=== PATIENT | male | born 1965 | race Caucasian/White ===

== ENCOUNTER → 2017-01-17 | Outpatient (CLI) | payer BC ==
[2017-01-17 10:21] LABS: Cholesterol 196 mg/dL (<200); HDL Cholesterol 54 mg/dL (40-60); Triglycerides 108 mg/dL (<150)
== END | disposition home or self-care (01) ==
LOC: LABWHC1 09:26
PROVIDERS: ATTEND Internal Medicine Endocrinology, Diabetes & Metabolism
DX: E10.65 Type 1 diabetes mellitus with hyperglycemia (principal)
CPT/HCPCS: 36415; 80061

== ENCOUNTER → 2017-04-24 | Outpatient (CLI) | payer BC ==
[2017-04-24 09:20] LABS: ALT 32 U/L (21-72); AST 24 U/L (17-59); Alkaline Phosphatase 81 U/L (38-126); Anion Gap 8 mmol/L; Blood Urea Nitrogen 20 mg/dL (9-20); Calcium 9.5 mg/dL (8.4-10.2); Carbon Dioxide 28 mmol/L (22-30); Chloride 106 mmol/L (98-107); Cholesterol 189 mg/dL (<200); Glucose 154 mg/dL (74-99); HDL Cholesterol 48 mg/dL (40-60); Non-African American GFR(MDRD) >60 (>60 ml/min/1.73 sqM); Potassium 4.9 mmol/L (3.5-5.1); Sodium 142 mmol/L (137-145); Total Bilirubin 0.9 mg/dL (0.2-1.3); Total Protein 7.4 g/dL (6.3-8.2); Triglycerides 124 mg/dL (<150)
== END | disposition home or self-care (01) ==
LOC: LABWHC1 08:24
PROVIDERS: ATTEND Internal Medicine Endocrinology, Diabetes & Metabolism
DX: E10.65 Type 1 diabetes mellitus with hyperglycemia (principal)
CPT/HCPCS: 36415; 80053; 80061; 82043

== ENCOUNTER → 2017-05-01 | Outpatient (CLI) | payer BC | END | disposition home or self-care (01) | LOC: LABWHC1 08:01 | PROVIDERS: ATTEND Internal Medicine Endocrinology, Diabetes & Metabolism | DX: E10.65 Type 1 diabetes mellitus with hyperglycemia (principal) | CPT/HCPCS: 36415; 82533; 84439; 84443 ==

== ENCOUNTER → 2017-08-02 | Outpatient (CLI) | payer BC | END | disposition home or self-care (01) | LOC: LABWHC1 08:54 | PROVIDERS: ATTEND Internal Medicine Endocrinology, Diabetes & Metabolism | DX: E10.65 Type 1 diabetes mellitus with hyperglycemia (principal) | CPT/HCPCS: 36415; 82533; 84439; 84443 ==

== ENCOUNTER 2017-10-13 10:37 | Observation (INO) | payer BC ==
--- NOTE | 2017-10-13 11:39 | ED ---
General Adult HPI - General Chief complaint: Arrhythmia/Palpitations Stated complaint: chest pain; palpitations; weakness Time Seen by Provider: 10/13/17 11:01 Source: patient, RN notes reviewed Mode of arrival: wheelchair Limitations: no limitations - History of Present Illness Initial comments: 52-year-old male with type 1 diabetes presents for evaluation of chest pain and epigastric pain. Patient also complains of palpitations, these are worse while leaning forward. Pain is described as dull in nature. Nonradiating. Patient is pain-free at the time of my evaluation. Patient has no known history of coronary artery disease. Patient's diagnosis of diabetes was made approximately one year ago. He does have a remote history of tobacco use, quit approximately 10 years ago. Patient denies cough. Denies fever. Chest pain and palpitations have been present for weeks to months. Patient states that these have worsened over the past 2 days. He does report some mild shortness of breath with pain. No nausea or vomiting or diaphoresis. - Related Data Home Medications Medication Instructions Recorded Confirmed Insulin Glargine,Hum.rec.anlog 5 units SQ DAILY@1200 10/13/17 10/13/17 [Toujeo Solostar] Insulin Lispro [humaLOG Kwikpen] 2 - 4 unit SQ ACHS 10/13/17 10/13/17 Latanoprost [Xalatan 0.005%] 1 drop RIGHT EYE HS 10/13/17 10/13/17 Timolol [Betimol 0.5% Ophth Soln] 1 drop BOTH EYES BID 10/13/17 10/13/17 Allergies Allergy/AdvReac Type Severity Reaction Status Date / Time No Known Allergies Allergy Verified 10/13/17 11:22 Review of Systems ROS Statement: Those systems with pertinent positive or pertinent negative responses have been documented in the HPI. ROS Other: All systems not noted in ROS Statement are negative. Past Medical History Past Medical History: Diabetes Mellitus, Hyperlipidemia History of Any Multi-Drug Resistant Organisms: None Reported Past Surgical History: Appendectomy Past Psychological History: No Psychological Hx Reported Smoking Status: Former smoker Past Alcohol Use History: Daily Past Drug Use History: Marijuana General Exam Limitations: no limitations General appearance: alert, in no apparent distress Head exam: Present: atraumatic, normocephalic Eye exam: Present: normal appearance, PERRL ENT exam: Present: normal exam Neck exam: Present: normal inspection. Absent: tenderness, meningismus Respiratory exam: Present: normal lung sounds bilaterally. Absent: respiratory distress Cardiovascular Exam: Present: regular rate, normal rhythm GI/Abdominal exam: Present: soft, tenderness (Mild epigastric tenderness). Absent: distended Extremities exam: Present: normal inspection, full ROM Neurological exam: Present: alert, oriented X3, CN II-XII intact. Absent: motor sensory deficit Psychiatric exam: Present: normal affect, normal mood Skin exam: Present: warm, dry, intact. Absent: cyanosis, diaphoretic Course Vital Signs 10/13/17 10/13/17 10/13/17 10:41 11:57 12:56 Temperature 97.4 F L Pulse Rate 72 69 68 Respiratory 18 18 16 Rate Blood Pressure 146/93 143/78 114/82 O2 Sat by Pulse 100 100 100 Oximetry - Reevaluation(s) Reevaluation #1: 10/13/17 13:21 Patient remains asymptomatic on emergency department. EKG Findings - EKG Comments: EKG Findings:: EKG obtained at 1057 shows sinus bradycardia with a rate of 58, LVH, early repolarization in the precordium, no ST segment elevation, no T-wave abnormality, SD interval 138, QRS duration 84, QTC 378. Medical Decision Making - Medical Decision Making 52-year-old male presenting with chest pain. Given the patient's risk factors, there is concern for coronary artery disease. EKG shows no signs of acute ischemia, EKG was repeated 30 minutes after initial EKG, this shows sinus bradycardia, LVH, ventricular rate 54, SD interval 140, QRS duration 84, QTC 378 , unchanged from previous EKG. Patient remains chest pain-free while the emergency department. He is given aspirin. He will be placed in observation for serial cardiac enzymes and cardiology evaluation. - Lab Data Result diagrams: 10/13/17 11:10/13/17 11:34 Lab Results 10/13/17 10/13/17 10/13/17 Range/Units 11:05 11:05 11:34 WBC 6.0 (3.8-10.6) k/uL RBC 5.33 (4.30-5.90) m/uL Hgb 17.3 (13.0-17.5) gm/dL Hct 49.5 (39.0-53.0) % MCV 92.8 (80.0-100.0) fL MCH 32.5 (25.0-35.0) pg MCHC 35.1 (31.0-37.0) g/dL RDW 13.3 (11.5-15.5) % Plt Count 165 (150-450) k/uL Neutrophils % 65 % Lymphocytes % 23 % Monocytes % 7 % Eosinophils % 2 % Basophils % 0 % Neutrophils # 3.9 (1.3-7.7) k/uL Lymphocytes # 1.4 (1.0-4.8) k/uL Monocytes # 0.4 (0-1.0) k/uL Eosinophils # 0.1 (0-0.7) k/uL Basophils # 0.0 (0-0.2) k/uL PT 11.1 (9.0-12.0) sec INR 1.1 (<1.2) APTT 23.6 (22.0-30.0) sec Sodium (137-145) mmol/L Potassium (3.5-5.1) mmol/L Chloride (98-107) mmol/L Carbon Dioxide (22-30) mmol/L Anion Gap mmol/L BUN (9-20) mg/dL Creatinine (0.66-1.25) mg/dL Est GFR (MDRD) Af Amer (>60 ml/min/1.73 sqM) Est GFR (MDRD) Non-Af (>60 ml/min/1.73 sqM) Glucose (74-99) mg/dL Calcium (8.4-10.2) mg/dL Magnesium (1.6-2.3) mg/dL Total Bilirubin (0.2-1.3) mg/dL AST (17-59) U/L ALT (21-72) U/L Alkaline Phosphatase (38-126) U/L Total Creatine Kinase 126 (55-170) U/L CK-MB (CK-2) 0.8 (0.0-2.4) ng/mL CK-MB (CK-2) Rel Index 0.6 Troponin I <0.012 (0.000-0.034) ng/mL NT-Pro-B Natriuret Pep pg/mL Total Protein (6.3-8.2) g/dL Albumin (3.5-5.0) g/dL 11/19/17 11/19/17 Range/Units 11:34 11:34 WBC (3.8-10.6) k/uL RBC (4.30-5.90) m/uL Hgb (13.0-17.5) gm/dL Hct (39.0-53.0) % MCV (80.0-100.0) fL MCH (25.0-35.0) pg MCHC (31.0-37.0) g/dL RDW (11.5-15.5) % Plt Count (150-450) k/uL Neutrophils % % Lymphocytes % % Monocytes % % Eosinophils % % Basophils % % Neutrophils # (1.3-7.7) k/uL Lymphocytes # (1.0-4.8) k/uL Monocytes # (0-1.0) k/uL Eosinophils # (0-0.7) k/uL Basophils # (0-0.2) k/uL PT (9.0-12.0) sec INR (<1.2) APTT (22.0-30.0) sec Sodium 138 (137-145) mmol/L Potassium 4.6 (3.5-5.1) mmol/L Chloride 105 (98-107) mmol/L Carbon Dioxide 22 (22-30) mmol/L Anion Gap 11 mmol/L BUN 14 (9-20) mg/dL Creatinine 0.75 (0.66-1.25) mg/dL Est GFR (MDRD) Af Amer >60 (>60 ml/min/1.73 sqM) Est GFR (MDRD) Non-Af >60 (>60 ml/min/1.73 sqM) Glucose 143 H (74-99) mg/dL Calcium 10.0 (8.4-10.2) mg/dL Magnesium 2.0 (1.6-2.3) mg/dL Total Bilirubin 1.2 (0.2-1.3) mg/dL AST 24 (17-59) U/L ALT 37 (21-72) U/L Alkaline Phosphatase 89 (38-126) U/L Total Creatine Kinase (55-170) U/L CK-MB (CK-2) (0.0-2.4) ng/mL CK-MB (CK-2) Rel Index Troponin I (0.000-0.034) ng/mL NT-Pro-B Natriuret Pep 33 pg/mL Total Protein 7.6 (6.3-8.2) g/dL Albumin 4.5 (3.5-5.0) g/dL Disposition Clinical Impression: Chest pain Disposition: ADMITTED IP TO THIS [facility] Condition: Stable Referrals: Deyanira Montaño DO [Primary Care Provider] - 1-2 days Decision to Admit Reason: Admit from EC Decision Date: 10/13/17 Decision Time: 13:24
[2017-10-13 11:42] LABS: Basophils % (A) 0 %; CH 33.5; CHCM 36.2; Eosinophils # (A) 0.1 k/uL (0-0.7); Eosinophils % (A) 2 %; HCT 49.5 % (39.0-53.0); HDW 2.69; HGB 17.3 gm/dL (13.0-17.5); Large Platelets Flag Slight; Luc # (Auto) 0.22; Luc % (Auto) 4; Lymphocytes # (A) 1.4 k/uL (1.0-4.8); Lymphocytes % (A) 23 %; MCH 32.5 pg (25.0-35.0); MCHC 35.1 g/dL (31.0-37.0); MCV 92.8 fL (80.0-100.0); Mean Platelet Volume 10.4; Monocytes # (A) 0.4 k/uL (0-1.0); Monocytes % (A) 7 %; Neutrophils # (A) 3.9 k/uL (1.3-7.7); Neutrophils % (A) 65 %; RBC 5.33 m/uL (4.30-5.90); RDW 13.3 % (11.5-15.5); WBC (Perox) 5.87
[2017-10-13 11:50] LABS: ALT 37 U/L (21-72); AST 24 U/L (17-59); Alkaline Phosphatase 89 U/L (38-126); Anion Gap 11 mmol/L; Blood Urea Nitrogen 14 mg/dL (9-20); Carbon Dioxide 22 mmol/L (22-30); Chloride 105 mmol/L (98-107); Glucose 143 mg/dL (74-99); Non-African American GFR(MDRD) >60 (>60 ml/min/1.73 sqM); Potassium 4.6 mmol/L (3.5-5.1); Sodium 138 mmol/L (137-145); Total Bilirubin 1.2 mg/dL (0.2-1.3); Total Protein 7.6 g/dL (6.3-8.2)
--- NOTE | 2017-10-13 11:51 | XR ---
EXAMINATION TYPE: XR chest 2V DATE OF EXAM: 10/13/2017 HISTORY: Chest Pain. REFERENCE: NONE. FINDINGS: The lungs are overinflated. The lungs are clear. Pleural space are clear. The heart is not enlarged. IMPRESSION: COPD.
[2017-10-13 12:02] LABS: Creatine Kinase 126 U/L (55-170)
[2017-10-13 12:06] LABS: INR 1.1 (<1.2); Partial Thromboplastin Time 23.6 sec (22.0-30.0); Prothrombin Time 11.1 sec (9.0-12.0)
[2017-10-13 12:15] LABS: Creatine Kinase MB 0.8 ng/mL (0.0-2.4); Troponin I <0.012 ng/mL (0.000-0.034)
[2017-10-13] MEDS ORDERED: ASPIRIN 325 MG TAB PO STA (13:17)
[2017-10-13] MEDS ORDERED: ONDANSETRON 4 MG/2 ML VIAL IVP PRN (13:17)
[2017-10-13] MEDS ORDERED: ACETAMINOPHEN TAB 325 MG TAB PO PRN (13:17)
[2017-10-13] MEDS ORDERED: NALOXONE 0.4 MG/ML 1 ML VIAL IV PRN (13:17)
[2017-10-13] MEDS: SODIUM CHLORIDE 0.9% 1,000 ML IV SCH (14:04)
[2017-10-13 14:57] LABS: Glucose,Whole Blood 126 mg/dL (75-99)
[2017-10-13 16:44] LABS: Glucose,Whole Blood 173 mg/dL (75-99)
[2017-10-13 16:45] VITALS: BMI 23.0
[2017-10-13] MEDS: INSULIN ASPART 100 UNIT/ML 1 ML 10 ML VIAL SQ SCH ×2 (17:10→21:34)
[2017-10-13 17:29] LABS: Creatine Kinase 94 U/L (55-170)
[2017-10-13 17:43] LABS: Creatine Kinase MB 0.5 ng/mL (0.0-2.4); Troponin I <0.012 ng/mL (0.000-0.034)
[2017-10-13 18:29] VITALS: RESP 18
[2017-10-13] MEDS ORDERED: TIMOLOL 0.5% OPHTH DROPS 5 ML BTL BOTH EYES SCH (21:00)
[2017-10-13] MEDS ORDERED: TIMOLOL 0.5% OPHTH SOLN (PF) 0.2 ML DROPERETTE BOTH EYES ONE (21:00)
[2017-10-13] MEDS ORDERED: LATANOPROST 0.005% OPHTH DROPS 2.5 ML BTL RIGHT EYE SCH (21:00)
[2017-10-13 21:10] LABS: Glucose,Whole Blood 199 mg/dL (75-99)
[2017-10-13 23:24] LABS: Creatine Kinase 73 U/L (55-170)
[2017-10-13 23:36] LABS: Creatine Kinase MB 0.4 ng/mL (0.0-2.4); Troponin I <0.012 ng/mL (0.000-0.034)
[2017-10-14 06:32] LABS: Glucose,Whole Blood 146 mg/dL (75-99)
[2017-10-14] MEDS: INSULIN ASPART 100 UNIT/ML 1 ML 10 ML VIAL SQ SCH ×2 (06:35→13:07)
[2017-10-14] MEDS ORDERED: ASPIRIN 325 MG TAB PO SCH (09:00)
[2017-10-14] MEDS: SODIUM CHLORIDE 0.9% 1,000 ML IV SCH (10:53)
[2017-10-14 11:10] LABS: Amylase <30 U/L (30-110)
--- NOTE | 2017-10-14 11:25 | P.CRDCN ---
History of Present Illness Consult date: 10/14/17 History of present illness: This is a 52-year-old male past medical history significant for diabetes mellitus, hyperlipidemia, daily marijuana use and daily alcohol intake. He states he takes 4-5 beers per day. He has never seen a manager laundry for any reason. He denies history of coronary artery disease. He visited the patient in consultation for complaints of palpitations and fluttering of his heart. He states he has been struggling with this for the last 3-4 months. 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 He says it is associated with mild epigastric discomfort at times. He denies associated shortness of breath, dizziness, diaphoresis or nausea/ vomiting. He denies radiation of the discomfort. He states he has felt several episodes over the previous 24 hours. Telemetry tracings reveal sinus mechanism with no arrhythmias noted heart rate has been in the 70s. EKG reveals sinus mechanism, rate of [address] or T wave abnormalities noted. Chest x-ray negative for acute cardiopulmonary process indicates COPD. Cardiac enzymes negative 3, potassium 4.6, magnesium 2.0, TSH 1.4. He states he has tried pravastatin in the past and had severe joint and body aches. Review of Systems CONSTITUTIONAL: Denies fever. Denies chills. EYES: Denies blurred vision. Denies vision changes. Denies eye pain. EARS, NOSE, MOUTH & THROAT: Denies headache. Denies sore throat. Denies ear pain. CARDIOVASCULAR: Denies chest pain. Denies shortness of breath. Denies orthopnea. Denies PND. Denies palpitations. RESPIRATORY: Denies cough. GASTROINTESTINAL: Denies abdominal pain. Denies diarrhea. Denies constipation. Denies nausea. Denies vomitng. MUSCULOSKELETAL: Denies myalgias. INTEGUMENTARY: Denies pruitis. Denies rash. NEUROLOGIC: Denies numbness. Denies tingling. Denies weakness. PSYCHIATRIC: Denies anxiety. Denies depression. ENDOCRINE: Denies fatigue. Denies weight change. Denies polydipsia. Denies polyurina. GENITOURINARY: Denies burning, hematuria or urgency with micturation. HEMATOLOGIC: Denies history of anemia. Denies bleeding. Past Medical History Past Medical History: Diabetes Mellitus, Eye Disorder, Hyperlipidemia Additional Past Medical History / Comment(s): glucoma History of Any Multi-Drug Resistant Organisms: None Reported Past Surgical History: Appendectomy Past Anesthesia/Blood Transfusion Reactions: No Reported Reaction Past Psychological History: No Psychological Hx Reported Smoking Status: Former smoker Past Alcohol Use History: Daily Past Drug Use History: Marijuana - Past Family History Father Family Medical History: Cancer, Myocardial Infarction ([place]) Medications and Allergies Home Medications Medication Instructions Recorded Confirmed Type Insulin Glargine,Hum.rec.anlog 5 units SQ DAILY@1200 10/13/17 10/13/17 History [Toujeo Solostar] Insulin Lispro [humaLOG Kwikpen] 2 - 4 unit SQ ACHS 10/13/17 10/13/17 History Latanoprost [Xalatan 0.005%] 1 drop RIGHT EYE HS 10/13/17 10/13/17 History Timolol [Betimol 0.5% Ophth Soln] 1 drop BOTH EYES BID 10/13/17 10/13/17 History Allergies Allergy/AdvReac Type Severity Reaction Status Date / Time No Known Allergies Allergy Verified 10/13/17 11:22 Physical Exam Vitals: Vital Signs Temp Pulse Pulse Resp BP BP Pulse Ox 10/14/17 09:12 98 F 81 18 158/85 100 10/14/17 08:00 66 18 10/14/17 04:00 96.8 F L 66 18 131/76 98 10/14/17 00:00 96.8 F L 70 18 128/82 97 10/13/17 20:00 97.9 F 82 18 133/82 98 10/13/17 15:00 97.9 F 73 18 135/84 97 10/13/17 14:36 97.6 F 10/13/17 14:00 78 16 124/83 100 10/13/17 12:56 68 16 114/82 100 10/13/17 11:57 69 18 143/78 100 Intake and Output 10/13/17 10/14/17 10/14/17 22:59 06:59 14:59 Intake Total 700 200 Output Total 500 Balance 700 -300 Intake: IV 450 200 Sodium Chloride 0.9% 1, 450 200 000 ml @ 50 mls/hr IV . Q20H [facility] Rx#:[id number] Oral 250 Output: Urine 500 Other: Voiding Method Toilet # Voids 1 1 Weight 77.11 kg 74.3 kg GENERAL: This is a 52-year-old male in no apparent distress at the time of my examination. HEENT: Head is atraumatic, normocephalic. Pupils are equal, round. Sclerae anicteric. Conjunctivae are clear. Mucous membranes of the mouth are moist. Neck is supple. There is no jugular venous distention. No carotid bruit is heard. LUNGS: Clear to auscultation no wheezes, rales or rhonchi. No chest wall tenderness is noted on palpation or with deep breathing. HEART: Regular rate and rhythm without murmurs, rubs or gallops. S1 and S2 heard. ABDOMEN: Soft, nontender. Bowel sounds are heard. No organomegaly noted. EXTREMITIES: 2+ peripheral pulses with no evidence of peripheral edema and no calf tenderness noted. NEUROLOGIC: Patient is awake, alert and oriented x3. Results 10/13/17 11:05 10/13/17 11:34 Cardiac Enzymes 10/13/17 10/13/17 10/13/17 Range/Units 11:34 11:34 16:45 AST 24 (17-59) U/L CK-MB (CK-2) 0.8 0.5 (0.0-2.4) ng/mL Troponin I <0.012 <0.012 (0.000-0.034) ng/mL 10/13/17 Range/Units 22:43 AST (17-59) U/L CK-MB (CK-2) 0.4 (0.0-2.4) ng/mL Troponin I <0.012 (0.000-0.034) ng/mL Coagulation 10/13/17 Range/Units 11:05 PT 11.1 (9.0-12.0) sec APTT 23.6 (22.0-30.0) sec CBC 10/13/17 Range/Units 11:05 WBC 6.0 (3.8-10.6) k/uL RBC 5.33 (4.30-5.90) m/uL Hgb 17.3 (13.0-17.5) gm/dL Hct 49.5 (39.0-53.0) % Plt Count 165 (150-450) k/uL Comprehensive Metabolic Panel 10/13/17 Range/Units 11:34 Sodium 138 (137-145) mmol/L Potassium 4.6 (3.5-5.1) mmol/L Chloride 105 (98-107) mmol/L Carbon Dioxide 22 (22-30) mmol/L BUN 14 (9-20) mg/dL Creatinine 0.75 (0.66-1.25) mg/dL Glucose 143 H (74-99) mg/dL Calcium 10.0 (8.4-10.2) mg/dL AST 24 (17-59) U/L ALT 37 (21-72) U/L Alkaline Phosphatase 89 (38-126) U/L Total Protein 7.6 (6.3-8.2) g/dL Albumin 4.5 (3.5-5.0) g/dL Current Medications Generic Name Dose Route Start Last Admin Trade Name Freq PRN Reason Stop Dose Admin Acetaminophen 650 mg 10/13/17 13:17 Tylenol Tab PO Q6HR PRN Mild Pain or Fever > 100.5 Aspirin 325 mg 10/14/17 09:00 Aspirin PO DAILY [facility] Atorvastatin Calcium 40 mg 10/14/17 21:00 Lipitor PO HS [facility] Sodium Chloride 1,000 mls @ 50 mls/hr 10/13/17 13:30 10/14/17 10:53 Saline 0.9% IV Not Given .Q20H [facility] Insulin Aspart 2 unit 10/13/17 17:30 10/14/17 06:35 Novolog SQ Not Given ACHS [facility] Insulin Detemir 5 unit 10/14/17 12:00 Levemir SQ DAILY@1200 [facility] Latanoprost 1 drops 10/13/17 21:00 10/13/17 20:31 Xalatan 0.005% RIGHT EYE 1 drops HS [facility] Administration Naloxone HCl 0.2 mg 10/13/17 13:17 Narcan IV Q2M PRN Opioid Reversal Ondansetron HCl 4 mg 10/13/17 13:17 Zofran IVP Q8HR PRN Nausea And Vomiting Timolol Maleate 1 drops 10/13/17 21:00 Timoptic BOTH EYES BID [facility] Intake and Output 10/13/17 10/14/17 10/14/17 22:59 06:59 14:59 Intake Total 700 200 Output Total 500 Balance 700 -300 Intake: IV 450 200 Sodium Chloride 0.9% 1, 450 200 000 ml @ 50 mls/hr IV . Q20H [facility] Rx#:[id number] Oral 250 Output: Urine 500 Other: Voiding Method Toilet # Voids 1 1 Weight 77.11 kg 74.3 kg 10/13/17 11:05 10/13/17 11:34 Assessment and Plan Assessment: ASSESSMENT 1. Chest pain, atypical. Not indicative of an acute coronary syndrome with EKG showing sinus mechanism and negative cardiac enzymes. 2. Type 1 diabetes mellitus, new diagnosis 3. Hyperlipidemia, currently not being treated due to intolerance of pravastatin. PLAN Obtain 2D echocardiogram and doppler study to assess cardiac structure and function. Perform stress echocardiogram to evaluate for ischemia. Add lipitor to his daily regimen and evaluate for tolerance. Further recommendations will be based upon clinical course. Thank you kindly for this consultation. Nurse Practitioner note has been reviewed, I agree with a documented findings and plan of care. Patient was seen and examined.
[2017-10-14 11:29] VITALS: TEMP 98.1
[2017-10-14] MEDS ORDERED: INSULIN DETEMIR 100 UNIT/ML 10 ML VIAL SQ SCH (12:00)
--- NOTE | 2017-10-14 12:19 | P.HPIM ---
History of Present Illness H&P Date: 10/14/17 Chief Complaint: Chest pressure and heart palpitations This is a 52-year-old male with a known history of diabetes mellitus type 1, hyperlipidemia and former smoker. Patient presents to emergency room with complaints of heart palpitations and chest pressure and epigastric discomfort. The pain does not radiate. He denies any nausea or vomiting. He denies any diaphoresis. Last stress test was several years ago and was negative. Troponins are negative 3. EKG showing sinus bradycardia with a heart rate of 58. Chest x-ray showing COPD. Patient was noted to the observation floor cardiology has been consulted. They've ordered a stress echo. Patient denies any cough fever or chills or sweats. Denies any nausea or vomiting. Denies any bowel movement changes or urinary symptoms. Patient does drink beer 1-3 cans per day. Amylase and lipase and LFTs are all within normal limits. Review of Systems Please refer to HPI otherwise unremarkable Past Medical History Past Medical History: Diabetes Mellitus, Eye Disorder, Hyperlipidemia Additional Past Medical History / Comment(s): glucoma History of Any Multi-Drug Resistant Organisms: None Reported Past Surgical History: Appendectomy Past Anesthesia/Blood Transfusion Reactions: No Reported Reaction Past Psychological History: No Psychological Hx Reported Smoking Status: Former smoker Past Alcohol Use History: Daily Past Drug Use History: Marijuana - Past Family History Father Family Medical History: Cancer, Myocardial Infarction ([place]) Medications and Allergies Home Medications Medication Instructions Recorded Confirmed Type Insulin Glargine,Hum.rec.anlog 5 units SQ DAILY@1200 10/13/17 10/13/17 History [Yue Echeverria] Insulin Lispro [humaLOG Kwikpen] 2 - 4 unit SQ ACHS 10/13/17 10/13/17 History Latanoprost [Xalatan 0.005%] 1 drop RIGHT EYE HS 10/13/17 10/13/17 History Timolol [Betimol 0.5% Ophth Soln] 1 drop BOTH EYES BID 10/13/17 10/13/17 History Allergies Allergy/AdvReac Type Severity Reaction Status Date / Time No Known Allergies Allergy Verified 10/13/17 11:22 Physical Exam Vitals: Vital Signs Temp Pulse Pulse Resp BP BP Pulse Ox 10/14/17 11:28 98.1 F 85 18 132/85 98 10/14/17 09:12 98 F 81 18 158/85 100 10/14/17 08:00 66 18 10/14/17 04:00 96.8 F L 66 18 131/76 98 10/14/17 00:00 96.8 F L 70 18 128/82 97 10/13/17 20:00 97.9 F 82 18 133/82 98 10/13/17 15:00 97.9 F 73 18 135/84 97 10/13/17 14:36 97.6 F 10/13/17 14:00 78 16 124/83 100 10/13/17 12:56 68 16 114/82 100 Intake and Output 10/13/17 10/14/17 10/14/17 22:59 06:59 14:59 Intake Total 700 200 Output Total 500 Balance 700 -300 Intake: IV 450 200 Sodium Chloride 0.9% 1, 450 200 000 ml @ 50 mls/hr IV . Q20H [facility] Rx#:[id number] Oral 250 Output: Urine 500 Other: Voiding Method Toilet # Voids 1 1 Weight 77.11 kg 74.3 kg Head normocephalic Neck supple Lungs clear to auscultation bilaterally no wheezing or crackles Heart regular rate and rhythm S1-S2, no rub or gallop Abdomen is soft epigastric tenderness nondistended positive bowel sounds no hepatosplenomegaly Extremities no edema Neuro alert and orientated to 3 Results CBC & Chem 7: 10/13/17 11:05 10/13/17 11:34 Labs: Abnormal Lab Results - Last 24 Hours (Table) 10/13/17 10/13/17 10/13/17 Range/Units 14:53 16:38 21:09 POC Glucose (mg/dL) 126 H 173 H 199 H (75-99) mg/dL Amylase (30-110) U/L 10/14/17 10/14/17 Range/Units 06:30 10:35 POC Glucose (mg/dL) 146 H (75-99) mg/dL Amylase <30 L (30-110) U/L Thrombosis Risk Factor Assmnt - Choose All That Apply Any of the Below Risk Factors Present?: Yes Each Factor Represents 1 point: Age 41-60 years Other Risk Factors: No Other congenital or acquired thrombophilia - If yes, enter type in comment: No Thrombosis Risk Factor Assessment Total Risk Factor Score: 1 Thrombosis Risk Factor Assessment Level: Low Risk Assessment and Plan Assessment: 1. Chest pain and heart palpitations: Troponins negative 3 sets. EKG showing sat sinus bradycardia with heart rate of 58. Continue telemetry monitoring. Patient seen by cardiology they've ordered a stress echo. 2. Epigastric tenderness: Amylase lipase are normal. LFTs normal. 3. Diabetes mellitus type 1 diagnosed a year ago. Continue current insulin 4. Former smoker 5. Daily alcohol use. Drinks 1-3 beers daily. We'll monitor GI prophylaxis Protonix and DVT prophylaxis subcu heparin Time with Patient: Greater than 30 (Greater than 50% of the total time spent in counseling and coordination of care.I performed an examination of the patient and discussed their management with the physician Transportation Engineer. I have reviewed the Physician Transportation Engineer's notes and agree with the documented findings and plan of care)
[2017-10-14] MEDS ORDERED: PANTOPRAZOLE 40 MG TABLET PO SCH (12:30)
[2017-10-14 12:49] LABS: Glucose,Whole Blood 188 mg/dL (75-99)
--- NOTE | 2017-10-14 13:01 | ECHOS ---
STRESS ECHOCARDIOGRAM INDICATIONS: Chest pain. MEDICATIONS:: Timolol, Latanoprost, insulin Lispro, insulin Glargine. BASELINE HEART RATE: 93 BASELINE BLOOD PRESSURE: 110/62 MAXIMUM HEART RATE: 166 MAXIMUM BLOOD PRESSURE: 206/61 85% MPHR: 143 100% MPHR: 168 METS: 10.1 MAXIMUM STAGE REACHED: 3 TOTAL EXERCISE TIME: 9:00 CLINICAL INFORMATION: Patient was exercised for a total period of 9 minutes. A peak heart rate of 166 was achieved. Maximum blood pressure of 206/61 mmHg was noted. Patient did not complain of any chest pain during the test. Resting EKG shows normal sinus rhythm with normal NM interval and QRS duration and normal ST-T waves. During exercise, J-point depression with upsloping ST segments were noted. No dysrhythmias are noted. FINAL IMPRESSION: The baseline echocardiographic images reveal normal left ventricular chamber size with normal left ventricular systolic function. In the immediate post exercise period, normal increase in the wall thickness and contractility is noted. FINAL IMPRESSION: 1. This stress echocardiographic study is negative for stress-induced ischemia. 2. EKG portion of the stress test is not suggestive of ischemia. MMODL / IJN: [id number] /
--- NOTE | 2017-10-14 13:05 | ECHOF ---
Referral Reason:chest pain MEASUREMENTS -------- HEIGHT: 182.9 cm WEIGHT: 73.9 kg BP: 110/61 RVIDd: 3.2 cm (< 3.3) IVSd: 1.1 cm (0.6 - 1.1) LVIDd: 4.4 cm (3.9 - 5.3) LVPWd: 1.1 cm (0.6 - 1.1) IVSs: 1.5 cm LVIDs: 2.7 cm LVPWs: 1.5 cm LA Diam: 2.7 cm (2.7 - 3.8) LAESV Index (A-L): 18.94 ml/m Ao Diam: 3.5 cm (2.0 - 3.7) AV Cusp: 2.1 cm (1.5 - 2.6) MV EXCURSION: 24.902 mm (> 18.000) MV EF SLOPE: 92 mm/s (70 - 150) EPSS: 0.5 cm MV E Jarad: 0.59 m/s MV DecT: 219 ms MV A Jarad: 0.50 m/s MV E/A Ratio: 1.17 FINDINGS -------- Sinus rhythm. This was a technically good study. The left ventricular size is normal. There is borderline concentric left ventricular hypertrophy. Overall left ventricular systolic function is normal with, an EF between 60 - 65 %. The right ventricle is normal in size. Normal LA size by volume 22+/-6 ml/m2. The right atrium is normal in size. The aortic valve is trileaflet and appears structurally normal. The mitral valve is normal. The tricuspid valve appears structurally normal. There is no pulmonic regurgitation present. The aortic root size is normal. Normal inferior vena cava with normal inspiratory collapse consistent with estimated right atrial pre ssure of 5 mmHg. There is no pericardial effusion. CONCLUSIONS -------- 1. Sinus rhythm. 2. This was a technically good study. 3. The left ventricular size is normal. 4. There is borderline concentric left ventricular hypertrophy. 5. Overall left ventricular systolic function is normal with, an EF between 60 - 65 %. 6. The right ventricle is normal in size. 7. Normal LA size by volume 22+/-6 ml/m2. 8. The right atrium is normal in size. 9. The aortic valve is trileaflet and appears structurally normal. 10. The mitral valve is normal. 11. The tricuspid valve appears structurally normal. 12. There is no pulmonic regurgitation present. 13. The aortic root size is normal. 14. Normal inferior vena cava with normal inspiratory collapse consistent with estimated right atrial pressure of 5 mmHg. 15. There is no pericardial effusion. TAPING FOREMAN: Yvette Bruce RDCS
[2017-10-14 15:29] VITALS: BP 119/82; PULSE 81
--- NOTE | 2017-10-14 15:56 | P.DS ---
Providers Date of admission: 10/13/17 13:17 Expected date of discharge: 10/14/17 Attending physician: Lida Ziegler Consults: 10/13/17 13:18 Consult Physician Urgent Consulting Provider: Cierra Ball Consult Reason/Comments: Chest pain Do you want consulting provider notified?: Yes Primary care physician: Deyanira [facility] Course: Discharge diagnosis 1. Chest pain and heart palpitations: [place] ruled out. No arrhythmia noted on telemetry. Troponins negative 3 sets. EKG showing sat sinus bradycardia with heart rate of 58. Continue telemetry monitoring. Stress echo negative. Cardiology will follow up with patient on 11/05/2017 2. Epigastric tenderness: Amylase lipase are normal. LFTs normal. Discussed with patient to cut back on his alcohol and caffeine intake. Patient given a prescription for Pepcid 20 mg daily. We'll have him follow-up with PCP for further evaluation. 3. Diabetes mellitus type 1 diagnosed a year ago. Continue current insulin 4. Former smoker 5. Daily alcohol use. Drinks 1-3 beers daily. We'll monitor Hospital course This is a 52-year-old male with a known history of diabetes mellitus type 1, hyperlipidemia and former smoker. Patient presents to emergency room with complaints of heart palpitations and chest pressure and epigastric discomfort. The pain does not radiate. He denies any nausea or vomiting. He denies any diaphoresis. Last stress test was several years ago and was negative. Troponins are negative 3. EKG showing sinus bradycardia with a heart rate of 58. Chest x-ray showing COPD. Patient was noted to the observation floor cardiology has been consulted. They've ordered a stress echo. Patient denies any cough fever or chills or sweats. Denies any nausea or vomiting. Denies any bowel movement changes or urinary symptoms. Patient does drink beer 1-3 cans per day. Amylase and lipase and LFTs are all within normal limits. Patient was seen evaluated by cardiology. He will underwent a stress echocardiogram which showed no evidence of stress-induced ischemia. Cardiology did add Lipitor. Patient will be monitored for any reoccurrence of muscle aches with the statin. He had been on pravastatin in the past and had to discontinue it due to muscle cramping. Cardiology cleared patient for discharge and will follow him in the outpatient setting. Patient's symptoms have resolved. He is medically stable for discharge. We'll have him follow up with his PCP in 1 week. I performed an examination of the patient and discussed their management with the physician Programming Intern. I have reviewed the Physician Programming Intern's notes and agree with the documented findings and plan of care Patient Condition at Discharge: Stable Plan - Discharge Summary Discharge Rx Participant: Yes New Discharge Prescriptions: New Atorvastatin [Lipitor] 40 mg PO HS #30 tab Famotidine [Pepcid] 20 mg PO DAILY #30 tablet Continue Timolol [Betimol 0.5% Ophth Soln] 1 drop BOTH EYES BID Latanoprost [Xalatan 0.005%] 1 drop RIGHT EYE HS Insulin Lispro [humaLOG Kwikpen] 2 - 4 unit SQ ACHS Insulin Glargine,Hum.rec.anlog [Toujeo Solostar] 5 units SQ DAILY@1200 Discharge Medication List Insulin Glargine,Hum.rec.anlog [Toujeo Solostar] 5 units SQ DAILY@1200 10/13/17 [History] Insulin Lispro [humaLOG Kwikpen] 2 - 4 unit SQ ACHS 10/13/17 [History] Latanoprost [Xalatan 0.005%] 1 drop RIGHT EYE HS 10/13/17 [History] Timolol [Betimol 0.5% Ophth Soln] 1 drop BOTH EYES BID 10/13/17 [History] Atorvastatin [Lipitor] 40 mg PO HS #30 tab 10/14/17 [Rx] Famotidine [Pepcid] 20 mg PO DAILY #30 tablet 10/14/17 [Rx] Follow up Appointment(s)/Referral(s): Gala Welch MD [STAFF PHYSICIAN] - 11/05/17 3:00 pm (Appointment is at [facility]) Deyanira Montaño DO [Primary Care Provider] - 1 Week Activity/Diet/Wound Care/Special Instructions: Diet: diabetic Activity: as tolerated Discharge Disposition: HOME SELF-CARE
[2017-10-14] MEDS ORDERED: ATORVASTATIN 40 MG TAB PO SCH (21:00)
[2017-10-14] MEDS ORDERED: HEPARIN SODIUM,PORCINE 5,000 UNIT/ML 1 ML VIAL SQ SCH (21:00)
== END 2017-10-14 16:22 | disposition home or self-care (01) ==
LOC: EC 10:37 → 6SEL 13:17 → 3OBS 10-14 08:01
PROVIDERS: ADMIT Internal Medicine; ATTEND Internal Medicine
DX: R07.89 Other chest pain (principal); R00.2 Palpitations; R10.13 Epigastric pain; R06.02 Shortness of breath; E10.9 Type 1 diabetes mellitus without complications; Z79.4 Long term (current) use of insulin; H40.9 Unspecified glaucoma; E78.5 Hyperlipidemia, unspecified; Z87.891 Personal history of nicotine dependence; Z79.899 Other long term (current) drug therapy; Z82.49 Family history of ischemic heart disease and other diseases of the circulatory system
CPT/HCPCS: 36415; 71020; 80053; 82150; 82550; 82553; 83690; 83735; 83880; 84443; 84484; 85025; 85610; 85730; 93005; 93017; 93306; 93350; 99285

== ENCOUNTER → 2018-02-10 | Outpatient (CLI) | payer BC ==
[2018-02-10 08:25] LABS: ALT 26 U/L (21-72); AST 18 U/L (17-59); Albumin 3.8 g/dL (3.5-5.0); Alkaline Phosphatase 71 U/L (38-126); Anion Gap 8 mmol/L; Blood Urea Nitrogen 15 mg/dL (9-20); Calcium 9.3 mg/dL (8.4-10.2); Carbon Dioxide 29 mmol/L (22-30); Chloride 105 mmol/L (98-107); Cholesterol 162 mg/dL (<200); Glucose 159 mg/dL (74-99); HDL Cholesterol 41 mg/dL (40-60); LDL Cholesterol,Calculated 101 mg/dL (0-99); Potassium 4.8 mmol/L (3.5-5.1); Sodium 142 mmol/L (137-145); Total Bilirubin 0.4 mg/dL (0.2-1.3); Total Protein 6.3 g/dL (6.3-8.2); Triglycerides 101 mg/dL (<150)
[2018-02-10 17:36] LABS: Hemoglobin A1C 6.9 % (4.0-6.0)
== END | disposition home or self-care (01) ==
LOC: LABWHC1 07:28
PROVIDERS: ATTEND Internal Medicine Endocrinology, Diabetes & Metabolism
DX: E10.65 Type 1 diabetes mellitus with hyperglycemia (principal)
CPT/HCPCS: 36415; 80053; 80061; 83036

== ENCOUNTER → 2018-09-26 | Outpatient (CLI) | payer BC ==
[2018-09-26 15:41] LABS: Albumin 4.5 g/dL (3.80-4.90); Albumin/Globulin Ratio 2.25 (1.20-2.10); Anion Gap 7.6 mmol/L (4.00-12.00); Calcium 9.3 mg/dL (8.7-10.3); Carbon Dioxide 28.4 mmol/L (21.6-31.8); LDL Cholesterol,Calculated 134.6 mg/dL (0.0-131.0); Potassium 4.3 mmol/L (3.5-5.5); Total Bilirubin 0.5 mg/dL (0.2-1.2); Total Protein 6.5 g/dL (6.2-8.2); VLDL Calculation 33.4 mg/dL (5.00-40.00)
[2018-09-26 17:56] LABS: Hemoglobin A1C 7.9 % (4.0-6.0)
== END ==
LOC: LABWHC1 07:58
PROVIDERS: ATTEND Internal Medicine Endocrinology, Diabetes & Metabolism
DX: E10.65 Type 1 diabetes mellitus with hyperglycemia (principal)
CPT/HCPCS: 36415; 80053; 80061; 82043; 82570; 83036; 84443

== ENCOUNTER → 2019-01-12 | Outpatient (CLI) | payer BC ==
[2019-01-12 18:22] LABS: Albumin 4.2 g/dL (3.80-4.90); Albumin/Globulin Ratio 2.1 (1.60-3.17); Anion Gap 7.6 mmol/L (4.00-12.00); Calcium 9.2 mg/dL (8.7-10.3); Carbon Dioxide 29.4 mmol/L (21.6-31.8); LDL Cholesterol,Calculated 139.4 mg/dL (0.0-131.0); Potassium 4.4 mmol/L (3.5-5.5); Total Bilirubin 0.5 mg/dL (0.2-1.2); Total Protein 6.2 g/dL (6.2-8.2); VLDL Calculation 29.6 mg/dL (5.00-40.00)
[2019-01-12 18:55] LABS: Hemoglobin A1C 7.1 % (4.0-6.0)
== END | disposition home or self-care (01) ==
LOC: LABWHC1 08:45
PROVIDERS: ATTEND Internal Medicine Endocrinology, Diabetes & Metabolism
DX: E10.65 Type 1 diabetes mellitus with hyperglycemia (principal)
CPT/HCPCS: 36415; 80053; 80061; 83036

== ENCOUNTER → 2019-05-05 | Outpatient (CLI) | payer BC ==
[2019-05-05 11:49] LABS: LDL Cholesterol,Calculated 91.6 mg/dL (0.0-131.0); VLDL Calculation 15.4 mg/dL (5.00-40.00)
[2019-05-05 13:32] LABS: Hemoglobin A1C 6.7 % (4.0-6.0)
== END | disposition home or self-care (01) ==
LOC: LABWHC1 07:11
PROVIDERS: ATTEND Internal Medicine Endocrinology, Diabetes & Metabolism
DX: E10.65 Type 1 diabetes mellitus with hyperglycemia (principal)
CPT/HCPCS: 36415; 80061; 83036

== ENCOUNTER → 2019-12-30 | Outpatient (CLI) | payer BC ==
[2019-12-30 16:45] LABS: African American GFR (CKD) 98.5 (60.0-200.0); Albumin 4.4 g/dL (3.80-4.90); Albumin/Globulin Ratio 2.1 (1.60-3.17); Anion Gap 7.2 mmol/L (4.00-12.00); Calcium 9.7 mg/dL (8.7-10.3); Carbon Dioxide 26.8 mmol/L (21.6-31.8); Chol/HDL Ratio 4.07; Globulin 2.1 g/dL (1.6-3.3); LDL Cholesterol,Calculated 160.8 mg/dL (0.0-131.0); Non-African American GFR(CKD) 84.9 (60.0-200.0); Potassium 5.3 mmol/L (3.5-5.5); Total Bilirubin 0.7 mg/dL (0.2-1.2); Total Protein 6.5 g/dL (6.2-8.2); VLDL Calculation 17.2 mg/dL (5.00-40.00)
[2019-12-30 17:13] LABS: Hemoglobin A1C 6.6 % (4.0-6.0)
[2019-12-30 18:23] LABS: Microalbumin Creatinine Ratio <30 mg/g Creat (0-30); Urine Creatinine 102.3 mg/dL
== END | disposition home or self-care (01) ==
LOC: LABWHC1 07:44
PROVIDERS: ATTEND Internal Medicine Endocrinology, Diabetes & Metabolism
DX: E10.65 Type 1 diabetes mellitus with hyperglycemia (principal)
CPT/HCPCS: 36415; 80053; 80061; 82043; 82570; 83036; 84443

== ENCOUNTER → 2020-04-28 | Outpatient (CLI) | payer BC ==
[2020-04-28 18:37] LABS: Chol/HDL Ratio 4.44; LDL Cholesterol,Calculated 151.4 mg/dL (0.0-131.0); VLDL Calculation 20.6 mg/dL (5.00-40.00)
[2020-04-28 19:44] LABS: Hemoglobin A1C 6.2 % (4.0-6.0)
== END | disposition home or self-care (01) ==
LOC: LABWHC1 08:36
PROVIDERS: ATTEND Internal Medicine Endocrinology, Diabetes & Metabolism
DX: E10.65 Type 1 diabetes mellitus with hyperglycemia (principal)
CPT/HCPCS: 36415; 80061; 83036

== ENCOUNTER → 2020-08-10 | Outpatient (CLI) | payer BC ==
[2020-08-10 10:49] LABS: African American GFR (CKD) 78.4 (60.0-200.0); Albumin 4.2 g/dL (3.80-4.90); Albumin/Globulin Ratio 2.21 (1.60-3.17); Anion Gap 5.7 mmol/L (4.00-12.00); BUN/Creat Ratio 11.67 Ratio (12.00-20.00); Calcium 9.3 mg/dL (8.7-10.3); Carbon Dioxide 28.3 mmol/L (21.6-31.8); Chol/HDL Ratio 4.62; Globulin 1.9 g/dL (1.6-3.3); Non-African American GFR(CKD) 67.7 (60.0-200.0); Potassium 4.9 mmol/L (3.5-5.5); Total Protein 6.1 g/dL (6.2-8.2)
[2020-08-10 11:50] LABS: Microalbumin Creatinine Ratio <30 mg/g Creat (0-30); Urine Creatinine 93.4 mg/dL
[2020-08-10 18:10] LABS: Hemoglobin A1C 7.2 % (4.0-6.0)
== END | disposition home or self-care (01) ==
LOC: LABWHC1 07:18
PROVIDERS: ATTEND Internal Medicine Endocrinology, Diabetes & Metabolism
DX: E10.65 Type 1 diabetes mellitus with hyperglycemia (principal)
CPT/HCPCS: 36415; 80053; 80061; 82043; 82570; 83036; 84443

== ENCOUNTER → 2020-11-15 | Outpatient (CLI) | payer BC ==
[2020-11-15 16:45] LABS: Chol/HDL Ratio 4.02
[2020-11-15 17:44] LABS: Hemoglobin A1C 7.1 % (4.0-6.0)
== END | disposition home or self-care (01) ==
LOC: LABWHC1 08:01
PROVIDERS: ATTEND Internal Medicine Endocrinology, Diabetes & Metabolism
DX: E10.65 Type 1 diabetes mellitus with hyperglycemia (principal)
CPT/HCPCS: 36415; 80061; 83036

== ENCOUNTER → 2021-03-08 | Outpatient (CLI) | payer BC ==
[2021-03-08 12:28] LABS: African American GFR (CKD) 87.1 (60.0-200.0); Albumin 4.3 g/dL (3.80-4.90); Albumin/Globulin Ratio 2.15 (1.60-3.17); Anion Gap 3.4 mmol/L (4.00-12.00); Calcium 9.2 mg/dL (8.7-10.3); Carbon Dioxide 28.6 mmol/L (21.6-31.8); Chol/HDL Ratio 4.43; LDL Cholesterol,Calculated 133.6 mg/dL (0.0-131.0); Non-African American GFR(CKD) 75.2 (60.0-200.0); Potassium 4.6 mmol/L (3.5-5.5); Total Bilirubin 0.6 mg/dL (0.2-1.2); Total Protein 6.3 g/dL (6.2-8.2); VLDL Calculation 24.4 mg/dL (5.00-40.00)
[2021-03-08 18:42] LABS: Hemoglobin A1C 7.1 % (4.0-6.0)
[2021-03-08 23:54] LABS: Urine Creatinine 175.3 mg/dL
== END | disposition home or self-care (01) ==
LOC: LABWHC1 07:10
PROVIDERS: ATTEND Internal Medicine Endocrinology, Diabetes & Metabolism
DX: E10.65 Type 1 diabetes mellitus with hyperglycemia (principal)
CPT/HCPCS: 36415; 80053; 80061; 82043; 82570; 83036; 84443

== ENCOUNTER 2022-09-15 09:37 | Emergency (ER) | payer BC, OTHER ==
[2022-09-15 09:46] VITALS: BP 142/92; PULSE 70; RESP 16; TEMP 98.2
[2022-09-15] MEDS ORDERED: KETOROLAC 15 MG/ML 1 ML VIAL IVP STA (09:58)
[2022-09-15 10:33] LABS: Basophils % (A) 1 %; Eosinophils # (A) 0.3 k/uL (0-0.7); Eosinophils % (A) 4 %; HCT 44.4 % (39.0-53.0); HGB 15.7 gm/dL (13.0-17.5); Lymphocytes # (A) 2.1 k/uL (1.0-4.8); Lymphocytes % (A) 29 %; MCH 32.9 pg (25.0-35.0); MCHC 35.4 g/dL (31.0-37.0); MCV 92.8 fL (80.0-100.0); Mean Platelet Volume 10.8; Monocytes # (A) 0.5 k/uL (0-1.0); Monocytes % (A) 6 %; Neutrophils # (A) 4.3 k/uL (1.3-7.7); Neutrophils % (A) 58 %; Platelet Count 167 k/uL (150-450); RBC 4.78 m/uL (4.30-5.90); RDW 12.7 % (11.5-15.5); WBC 7.4 k/uL (3.8-10.6)
[2022-09-15 10:50] LABS: ALT 21 U/L (4-49); AST 24 U/L (17-59); African American GFR (CKD) >90 (>60 ml/min/1.73 sqM); Albumin 4.6 g/dL (3.5-5.0); Alkaline Phosphatase 88 U/L (38-126); Anion Gap 11 mmol/L; Blood Urea Nitrogen 12 mg/dL (9-20); Calcium 9.2 mg/dL (8.4-10.2); Carbon Dioxide 24 mmol/L (22-30); Chloride 105 mmol/L (98-107); Glucose 107 mg/dL (74-99); Non-African American GFR(CKD) >90 (>60 ml/min/1.73 sqM); Potassium 4.1 mmol/L (3.5-5.1); Sodium 140 mmol/L (137-145); Total Bilirubin 0.6 mg/dL (0.2-1.3); Uric Acid 4.9 mg/dL (3.5-8.5)
[2022-09-15 11:10] LABS: C Reactive Protein <0.5 mg/dL (<1.0)
--- NOTE | 2022-09-15 11:20 | US ---
EXAMINATION TYPE: US venous doppler duplex LE RT DATE OF EXAM: 09/15/2022 11:05 AM COMPARISON: NONE CLINICAL HISTORY: pain. SIDE PERFORMED: Right TECHNIQUE: The lower extremity deep venous system is examined utilizing real time linear array sonog soraya with graded compression, doppler sonography and color-flow sonography. VESSELS IMAGED: Common Femoral Vein Deep Femoral Vein Greater Saphenous Vein * Femoral Vein Popliteal Vein Small Saphenous Vein * Proximal Calf Veins (* superficial vessels) Right Leg: Negative for DVT Grayscale, color doppler, spectral doppler imaging performed of the deep veins of the right lower ext remity. There is normal flow, compressibility, vascular waveforms. IMPRESSION: No ultrasound evidence for acute DVT in the right lower extremity.
--- NOTE | 2022-09-15 11:23 | XR ---
EXAMINATION TYPE: XR knee complete RT DATE OF EXAM: 09/15/2022 CLINICAL HISTORY: Pain. TECHNIQUE: Three views of the right knee are obtained. COMPARISON: None. FINDINGS: There is no acute fracture/dislocation evident in the right knee. Mild to moderate tricomp artment joint space loss with mild spurring patellofemoral compartment. The overlying soft tissue ap pears unremarkable. IMPRESSION: As above.
--- NOTE | 2022-09-15 12:05 | ED ---
Lower Extremity Injury HPI - General Chief Complaint: Extremity Injury, Lower Stated Complaint: R lower leg pain Time Seen by Provider: 09/15/22 09:47 Source: patient Mode of arrival: ambulatory Limitations: no limitations - History of Present Illness Initial Comments: Patient is a 57-year-old male presenting with chief complaint of right knee pain. Pain is been ongoing for the last 4 days, he describes it as a "burning" type pain. Some radiation down the leg. No injury or trauma. No numbness or tingling. No loss of range of motion. Patient states that he "otherwise feels fine". Patient has not been taking anti-inflammatories for pain. No d iscoloration, redness, swelling, fever, chills, nausea, vomiting, chest pain, difficulty breathing, palpitations, weakness, abdominal pain. - Related Data Home Medications Medication Instructions Recorded Confirmed Insulin Glargine,Hum.rec.anlog 5 units SQ DAILY@1200 10/13/17 10/13/17 [Toujeo Solostar] Insulin Lispro [humaLOG Kwikpen] 2 - 4 unit SQ ACHS 10/13/17 10/13/17 Latanoprost [Xalatan 0.005%] 1 drop RIGHT EYE HS 10/13/17 10/13/17 Timolol [Betimol 0.5% Ophth Soln] 1 drop BOTH EYES BID 10/13/17 10/13/17 Previous Rx's Medication Instructions Recorded Atorvastatin [Lipitor] 40 mg PO HS #30 tab 10/14/17 Famotidine [Pepcid] 20 mg PO DAILY #30 tablet 10/14/17 Allergies Allergy/AdvReac Type Severity Reaction Status Date / Time No Known Allergies Allergy Verified 09/15/22 09:43 Review of Systems ROS Statement: Those systems with pertinent positive or pertinent negative responses have been documented in the HPI. ROS Other: All systems not noted in ROS Statement are negative. Past Medical History Past Medical History: Diabetes Mellitus, Eye Disorder, Hyperlipidemia Additional Past Medical History / Comment(s): glucoma History of Any Multi-Drug Resistant Organisms: None Reported Past Surgical History: Appendectomy Past Anesthesia/Blood Transfusion Reactions: No Reported Reaction Past Psychological History: No Psychological Hx Reported Past Alcohol Use History: Daily Past Drug Use History: Marijuana - Past Family History Father Family Medical History: Cancer, Myocardial Infarction ([place]) General Exam Limitations: no limitations General appearance: alert, in no apparent distress Head exam: Present: atraumatic, normocephalic, normal inspection Eye exam: Present: normal appearance, PERRL, EOMI. Absent: scleral icterus, conjunctival injection, periorbital swelling Neck exam: Present: normal inspection Extremities exam: Present: normal capillary refill Right Knee exam: Present: full ROM, tenderness (joint line). Absent: swelling, ecchymosis, erythema, effusion Neurovascular tendon exam: Present: no vascular compromise. Absent: pulse deficit, abnormal cap refill, motor deficit, sensory deficit, tendon deficit Neurological exam: Present: alert, oriented X3, CN II-XII intact Psychiatric exam: Present: normal affect, normal mood Skin exam: Present: warm, dry, intact, normal color. Absent: rash Course Vital Signs 09/15/22 09:43 Temperature 98.2 F Pulse Rate 70 Respiratory 16 Rate Blood Pressure 142/92 O2 Sat by Pulse 98 Oximetry Medical Decision Making - Medical Decision Making Patient is a 57-year-old male presenting with chief complaint of right knee pain. Pain is been ongoing for the last 4 days. Patient has not been using anti-inflammatories at home. No recent injury, fever, chills, redness, swelling. Pulses are 2+ bilaterally, full sensation is intact, good cap refill. CBC shows no leukocytosis or anemia. CMP is grossly unremarkable. CRP is less than 0.5. Ultrasound shows no evidence of DVT. X-ray shows no acute fracture or dislocation. There is some joint space loss with mild spurring. Patient is educated on these findings and supportive treatment. Take Motrin and Tylenol as needed, rest, ice, compress, and elevate the knee. Follow-up with PCP. Report back to ER with any new or worsening symptoms. Discussed return parameters and answered all questions. Patient conveyed verbal understanding and agreed to the plan. I discussed this case in detail with my attending Dr. Lee. - Lab Data Result diagrams: 09/15/22 10:09/15/22 10:19 Lab Results 09/15/22 09/15/22 09/15/22 Range/Units 10:19 10:19 10:19 WBC 7.4 (3.8-10.6) k/uL RBC 4.78 (4.30-5.90) m/uL Hgb 15.7 (13.0-17.5) gm/dL Hct 44.4 (39.0-53.0) % MCV 92.8 (80.0-100.0) fL MCH 32.9 (25.0-35.0) pg MCHC 35.4 (31.0-37.0) g/dL RDW 12.7 (11.5-15.5) % Plt Count 167 (150-450) k/uL MPV 10.8 Neutrophils % 58 % Lymphocytes % 29 % Monocytes % 6 % Eosinophils % 4 % Basophils % 1 % Neutrophils # 4.3 (1.3-7.7) k/uL Lymphocytes # 2.1 (1.0-4.8) k/uL Monocytes # 0.5 (0-1.0) k/uL Eosinophils # 0.3 (0-0.7) k/uL Basophils # 0.0 (0-0.2) k/uL ESR 3 (0-15) mm/hr Sodium 140 (137-145) mmol/L Potassium 4.1 (3.5-5.1) mmol/L Chloride 105 (98-107) mmol/L Carbon Dioxide 24 (22-30) mmol/L Anion Gap 11 mmol/L BUN 12 (9-20) mg/dL Creatinine 0.78 (0.66-1.25) mg/dL Est GFR (CKD-EPI)AfAm >90 (>60 ml/min/1.73 sqM) Est GFR (CKD-EPI)NonAf >90 (>60 ml/min/1.73 sqM) Glucose 107 H (74-99) mg/dL Plasma Lactic Acid Tony 0.6 L (0.7-2.0) mmol/L Uric Acid 4.9 (3.5-8.5) mg/dL Calcium 9.2 (8.4-10.2) mg/dL Total Bilirubin 0.6 (0.2-1.3) mg/dL AST 24 (17-59) U/L ALT 21 (4-49) U/L Alkaline Phosphatase 88 (38-126) U/L C-Reactive Protein <0.5 (<1.0) mg/dL Total Protein 7.0 (6.3-8.2) g/dL Albumin 4.6 (3.5-5.0) g/dL Disposition Clinical Impression: Knee strain Disposition: HOME SELF-CARE Condition: Good Instructions (If sedation given, give patient instructions): Knee Pain (ED) Additional Instructions: Follow-up with PCP. Report back to ER with any new or worsening symptoms. Take Motrin and Tylenol as needed for pain control. Rest, ice, elevate the knee as needed. Compression with a knee brace may be beneficial. Is patient prescribed a controlled substance at d/c from ED?: No Referrals: Marichuy Rivas DO [Primary Care Provider] - 1-2 days Time of Disposition: 12:05
[2022-09-15 12:06] LABS: Erythrocyte Sedimentation Rate 3 mm/hr (0-15)
== END 2022-09-15 12:19 | disposition home or self-care (01) ==
LOC: EC 09:37
DX: S83.91XA Sprain of unspecified site of right knee, initial encounter (principal); E11.9 Type 2 diabetes mellitus without complications; E78.5 Hyperlipidemia, unspecified; X58.XXXA Exposure to other specified factors, initial encounter
CPT/HCPCS: 36415; 80053; 85652; 83605; 84550; 85025; 86140; 73562; 93971; 99284; 96374; J1885

== ENCOUNTER → 2022-10-04 | Outpatient (CLI) | payer BC ==
[2022-10-04 14:08] LABS: Microalbumin Creatinine Ratio <30 mg/g Creat (0-30)
[2022-10-04 14:31] LABS: ALT 16 U/L (10-49); AST 15 U/L (14-35); African American GFR (CKD) 101.8 (60.0-200.0); Albumin 4.4 g/dL (3.8-4.9); Albumin/Globulin Ratio 1.86 (1.60-3.17); Alkaline Phosphatase 89 U/L (41-126); Blood Urea Nitrogen 10.8 mg/dL (9.0-27.0); Calcium 9.5 mg/dL (8.7-10.3); Carbon Dioxide 27.4 mmol/L (20.0-27.5); Chloride 106 mmol/L (96-109); Chol/HDL Ratio 4.19 Ratio; Globulin 2.4 g/dL (1.6-3.3); Glucose 109 mg/dL (70-110); LDL Cholesterol,Calculated 135.6 mg/dL (0.0-131.0); Non-African American GFR(CKD) 87.8 (60.0-200.0); Potassium 4.7 mmol/L (3.5-5.5); Sodium 142 mmol/L (135-145); Total Protein 6.7 g/dL (6.2-8.2)
== END | disposition home or self-care (01) ==
LOC: LABWHC1 07:28
PROVIDERS: ATTEND Internal Medicine Endocrinology, Diabetes & Metabolism
DX: E10.65 Type 1 diabetes mellitus with hyperglycemia (principal)
CPT/HCPCS: 36415; 80053; 80061; 82043; 82570; 83036; 84443

== ENCOUNTER → 2023-05-11 | Outpatient (CLI) | payer BC ==
[2023-05-11 13:53] LABS: ALT 22 U/L (10-49); AST 20 U/L (14-35); Albumin 4.4 d/dL (3.8-4.9); Alkaline Phosphatase 81 U/L (41-126); BUN/Creat Ratio 14.56 Ratio (12.00-20.00); Blood Urea Nitrogen 13.1 mg/dL (9.0-27.0); Calcium 9.7 mg/dL (8.7-10.3); Carbon Dioxide 24.1 mmol/L (21.6-31.8); Chloride 105 mmol/L (96-109); Glucose 101 mg/dL (70-110); LDL Cholesterol,Calculated 118.2 mg/dL (0.0-131.0); Potassium 4.4 mmol/L (3.5-5.5); Sodium 141 mmol/L (135-145); Total Bilirubin 0.5 mg/dL (0.3-1.2); Total Protein 6.4 d/dL (6.2-8.2); VLDL Calculation 14.74 mg/dL (5.00-40.00)
[2023-05-11 15:16] LABS: Microalbumin Creatinine Ratio <8 mg/g Cr (0-30)
== END | disposition home or self-care (01) ==
LOC: LABWHC1 08:08
PROVIDERS: ATTEND Internal Medicine Endocrinology, Diabetes & Metabolism
DX: E10.65 Type 1 diabetes mellitus with hyperglycemia (principal)
CPT/HCPCS: 36415; 80053; 80061; 82043; 82570; 83036; 84443

== ENCOUNTER → 2024-04-25 | Outpatient (CLI) | payer BC ==
[2024-04-25 13:08] LABS: Microalbumin Creatinine Ratio <9 mg/g Cr (0-30)
[2024-04-25 13:24] LABS: Chol/HDL Ratio 3.68 Ratio; LDL Cholesterol,Calculated 128.6 mg/dL (0.0-131.0)
[2024-04-25 15:19] LABS: ALT 23 U/L (10-49); AST 20 U/L (14-35); Albumin 4.6 g/dL (3.8-4.9); Albumin/Globulin Ratio 2.09 Ratio (1.60-3.17); Alkaline Phosphatase 86 U/L (41-126); Blood Urea Nitrogen 11.2 mg/dL (9.0-27.0); Calcium 9.3 mg/dL (8.7-10.3); Chloride 104 mmol/L (96-109); Globulin 2.2 g/dL (1.6-3.3); Glucose 57 mg/dL (70-110); Potassium 4.6 mmol/L (3.5-5.5); Sodium 141 mmol/L (135-145); Total Bilirubin 0.5 mg/dL (0.3-1.2); Total Protein 6.8 g/dL (6.2-8.2)
== END | disposition home or self-care (01) ==
LOC: LABWHC1 08:06
PROVIDERS: ATTEND Internal Medicine Endocrinology, Diabetes & Metabolism
DX: E10.65 Type 1 diabetes mellitus with hyperglycemia (principal)
CPT/HCPCS: 36415; 80053; 80061; 82043; 82570; 83036; 84443

== ENCOUNTER → 2024-11-14 | Outpatient (CLI) | payer BC ==
[2024-11-14 13:11] LABS: ALT 17 U/L (10-49); AST 19 U/L (14-35); Albumin 4.4 g/dL (3.8-4.9); Albumin/Globulin Ratio 1.83 Ratio (1.60-3.17); Alkaline Phosphatase 90 U/L (41-126); Blood Urea Nitrogen 10.8 mg/dL (9.0-27.0); Calcium 9.6 mg/dL (8.7-10.3); Carbon Dioxide 26.9 mmol/L (21.6-31.8); Chloride 104 mmol/L (96-109); Chol/HDL Ratio 4.16 Ratio; Globulin 2.4 g/dL (1.6-3.3); Glucose 58 mg/dL (70-110); LDL Cholesterol,Calculated 141.9 mg/dL (0.0-131.0); Potassium 4.8 mmol/L (3.5-5.5); Sodium 142 mmol/L (135-145); Total Bilirubin 0.6 mg/dL (0.3-1.2); Total Protein 6.8 g/dL (6.2-8.2)
[2024-11-14 13:44] LABS: Microalbumin Creatinine Ratio <8 mg/g Cr (0-30)
== END | disposition home or self-care (01) ==
LOC: LABWHC1 08:01
PROVIDERS: ATTEND Internal Medicine Endocrinology, Diabetes & Metabolism
DX: E10.65 Type 1 diabetes mellitus with hyperglycemia (principal)
CPT/HCPCS: 36415; 80053; 80061; 82043; 82570; 83036; 84443

== ENCOUNTER → 2024-12-21 | Outpatient (CLI) | payer BC ==
--- NOTE | 2024-12-21 09:31 | CT ---
EXAMINATION TYPE: CT brain wo con CT DLP: 1029.9 mGycm, Automated exposure control for dose reduction was used. DATE OF EXAM: 12/21/2024 9:11 AM COMPARISON: CT brain 02/21/2016 CLINICAL INDICATION:Male, 59 years old with history of R51.9 HEADACHE, SALINAS, pain at the top of his hea d TECHNIQUE: Brain: Multiple axial CT images of the brain were obtained without IV contrast. . Coronal and sagitta l reformats reviewed. FINDINGS: Brain: Extra-axial spaces: No abnormal extra-axial fluid collections. Ventricular system: Within normal limits Cerebral parenchyma: No acute intraparenchymal hemorrhage or mass effect. The saldivar-white junction is well differentiated. Cerebellum: Unremarkable. Mass effect: No evidence of midline shift. Intracranial vasculature: unremarkable Soft tissues: Normal. Calvarium/osseous structures: No depressed skull fracture. Paranasal sinuses and mastoid air cells: Mastoid air cells are clear. Minimal mucosal thickening of t he posterior ethmoid sinus. Visualized orbits: Orbital contents are intact. IMPRESSION: No acute intracranial process. [facility], , 12/21/2024 9:28 AM
== END | disposition home or self-care (01) ==
LOC: RADCTMAIN 08:49
PROVIDERS: ATTEND Family Medicine
DX: R51.9 Headache, unspecified (principal)
CPT/HCPCS: 70450

== ENCOUNTER → 2025-03-27 | Outpatient (CLI) | payer BC ==
[2025-03-27 14:01] LABS: ALT 19 U/L (10-49); AST 22 U/L (14-35); Albumin 4.4 g/dL (3.8-4.9); Albumin/Globulin Ratio 1.91 Ratio (1.60-3.17); Alkaline Phosphatase 86 U/L (41-126); BUN/Creat Ratio 16.11 Ratio (12.00-20.00); Blood Urea Nitrogen 14.5 mg/dL (9.0-27.0); Calcium 9.5 mg/dL (8.7-10.3); Carbon Dioxide 25.2 mmol/L (21.6-31.8); Chloride 104 mmol/L (96-109); Chol/HDL Ratio 3.37 Ratio; Globulin 2.3 g/dL (1.6-3.3); Glucose 81 mg/dL (70-110); LDL Cholesterol,Calculated 124.3 mg/dL (0.0-131.0); Potassium 4.6 mmol/L (3.5-5.5); Sodium 138 mmol/L (135-145); Total Bilirubin 0.9 mg/dL (0.3-1.2); Total Protein 6.7 g/dL (6.2-8.2); VLDL Calculation 14.18 mg/dL (5.00-40.00)
[2025-03-27 19:27] LABS: Microalbumin Creatinine Ratio <10 mg/g Cr (0-30)
== END | disposition home or self-care (01) ==
LOC: LABWHC1 08:07
PROVIDERS: ATTEND Internal Medicine Endocrinology, Diabetes & Metabolism
DX: E10.65 Type 1 diabetes mellitus with hyperglycemia (principal)
CPT/HCPCS: 36415; 80053; 80061; 82043; 82570; 83036; 84443